=== PATIENT | female | born 1960 | race Caucasian/White ===

== ENCOUNTER → 2018-02-15 15:01 | Outpatient (CLI) | payer OTHER, SELFPAY ==
--- NOTE | 2018-02-15 15:04 | MM_ITS ---
MM Dig screening mamm BI w/CAD CAD Screening COMPARISON: Outside digital mammograms 11/25/2013 INDICATION: There is no personal or family history of breast cancer TECHNIQUE: Standard CC and MLO images were obtained. R2 CAD reviewed. FINDINGS: The breasts are composed primarily of fat with very minimal scattered fibro glandular densities in each breast. There is a mole marker right breast. There are couple of benign-appearing calcination is in each breast. There is no suspicious lesion in either breast and there are no suspicious microcalcifications. IMPRESSION: Fatty type breast parenchyma with no suspicious lesion seen BI-RADS Category: 2 Benign Finding(s) RECOMMENDED FOLLOW-UP: 1YR - 1 YEAR FOLLOW-UP (A letter has been sent to the patient regarding results of the study.)
== END ==
PROVIDERS: Family Provider Internal Medicine Pulmonary Disease; PCP Internal Medicine Pulmonary Disease; Visit Provider Internal Medicine Pulmonary Disease
DX: Z12.31 Encounter for screening mammogram for malignant neoplasm of breast (principal)
CPT/HCPCS: 77067

== ENCOUNTER → 2018-02-23 13:31 | Outpatient (CLI) | payer OTHER, SELFPAY ==
--- NOTE | 2018-02-23 13:36 | CT_ITS ---
EXAM: CT LUNG LOW DOSE WO CONTRAST COMPARISON: None HISTORY: Smoker. One pack per day for 33 years January 01 3 pack-year. Stopped smoking 8 years ago. No current symptoms TECHNIQUE: The exam was performed on a GE Light Speed [address] scanner using 3.0 mGy CTDI. A l. Ow dose helical CT CHEST was performed on a multi-detector scanner. All CT scans at this facility use one or more dose reduction techniques, viz.: automated exposure control; ma/kV adjustment per patient size (including targeted exams where dose is matched to indication; i.e. head) or iterative reconstruction technique. The LDCT was performed in a facility that meets the criteria for the screening program. Data regarding this exam was submitted to ACR which is an approved registry. The order for this exam indicates that it came as a result of a lung cancer screening counseling shard decision-making visit that included all the elements required of such a visit including smoking cessation. The radiologist interpreting this exam meets the CMS criteria for the LDCT lung cancer screening program. The exam is reported using the Lung-RADS classification scale and reported to the ACR registry. NOTE: This study was performed forspecific purposes of lung cancer screening and is not an alternative to diagnostic chest CT. RADIATION DOSE: CTDI vol(CT dose Index-volume) = 2.9mGy DLP (Dose Length Product) = 96.53 mGy-cm FINDINGS: No suspicious pulmonary mass or lung nodule. Indeterminate or Suspicious Lung Nodules(Category3-4B): None Indeterminate/Non-actionable Nodules(Category2): None Benign nodules(Category1).* Only Less than 4 mm calcified granuloma at posterior left midlung axial slice 36, sagittal 51. Small calcified hilar node associated. No suspicious lung nodule or mass. LUNG PARENCHYMA Emphysema: Minor centrilobular emphysematous changes No remarkable airway disease No significant fibrotic changes. OTHER ANATOMIC REGIONS Lymph Nodes: Upper normal precarinal lymph node measuring 19 mm x 11 mm.. Follow-up in one year adequate unless other adenopathy encountered. No clearly pathologic nodes t. Scattered small nodes are present in the mediastinum and michael Pleura: Unremarkable Cardiac: Unremarkable. Heart normal size OTHER FINDINGS: No other pertinent findings evident Uppermost abdomen with cholecystectomy noted IMPRESSION: No highly suspicious lung mass or findings 1. Lung RADS Category: 1 Benign granuloma. Not of concern 2.. Moderate size upper normal precarinal lymph node at 19 x 11 mm. . No significant nor clearly pathologic adenopathy overall RECOMMENDATIONS: 12 monthd LDCT follow-up
== END ==
PROVIDERS: Family Provider Internal Medicine Pulmonary Disease; PCP Internal Medicine Pulmonary Disease; Visit Provider Internal Medicine Pulmonary Disease
DX: Z12.2 Encounter for screening for malignant neoplasm of respiratory organs (principal); Z87.891 Personal history of nicotine dependence

== ENCOUNTER → 2018-07-18 20:33 | Outpatient (CLI) | payer BC, SELFPAY | PROVIDERS: Visit Provider Nurse Practitioner Family | DX: J02.9 Acute pharyngitis, unspecified (principal) ==

== ENCOUNTER → 2019-04-25 10:56 | Outpatient (CLI) | payer BC, SELFPAY ==
--- NOTE | 2019-04-25 11:04 | XR_ITS ---
PROCEDURE: XR HIP BI W PEL1V CLINICAL INDICATION: LT HIP PAIN COMPARISON: No exams were available for comparison FINDINGS: No fracture or dislocation. The hip has an unremarkable appearance. No significant degenerative change. There is asymmetric sclerosis the right symphysis pubis IMPRESSION: Negative right hip Sclerosis of the symphysis pubis on the right which may reflect osteitis pubis but is usually bilateral. Follow-up suggested to confirm stability. Dictated by: Eriberto Barajas MD 04/25/2019 12:56 Signed by: <Electronically signed by Eriberto Barajas MD in [place]> 04/25/2019 12:56
== END ==
PROVIDERS: PCP Emergency Medicine; Visit Provider Emergency Medicine
DX: M25.552 Pain in left hip (principal)
CPT/HCPCS: 73521

== ENCOUNTER → 2019-11-01 10:36 | Outpatient (CLI) | payer BC, SELFPAY ==
--- NOTE | 2019-11-01 10:40 | MM_ITS ---
PROCEDURE: MM DIG SCREENING MAMM BI W/CAD CLINICAL INDICATION: SCREENING There is no personal or family history of breast cancer. The patient is on estrogen. COMPARISON: Digital Screening Bilateral from 12/09/2011 Digital Screening Bilateral from 11/25/2013 [facility] MM Dig screening mamm BI w/CAD from 02/15/2018 TECHNIQUE: Standard CC and MLO images and 3D Tomosynthesis was obtained. R2 CAD reviewed. FINDINGS: Breasts are composed primarily of fat with minimal scattered fibroglandular densities throughout each breast. There are couple of benign-appearing calcifications in each breast. Jeremiah images were reviewed. There is no suspicious lesion in either breast and no suspicious microcalcifications. IMPRESSION: Fatty type breast parenchyma with no suspicious lesions seen BI-RAD Category: 2 Benign Finding(s) FOLLOW-UP: 1YR 1 Year Follow-up (A letter has been sent to the patient regarding results of the study.) Dictated by: Dr. Dakotah Whelan MD 11/05/2019 20:[address] Dakotah Whelan MD in [place] 11/05/2019 20:41
== END ==
PROVIDERS: PCP Nurse Practitioner Family; Visit Provider Nurse Practitioner Family
DX: Z12.31 Encounter for screening mammogram for malignant neoplasm of breast (principal)
CPT/HCPCS: 77063; 77067

== ENCOUNTER → 2020-09-22 09:55 | Outpatient (POV) | payer BC, SELFPAY | PROVIDERS: Visit Provider Dermatology | DX: Z00.00 Encounter for general adult medical examination without abnormal findings (principal) ==

== ENCOUNTER → 2020-11-03 08:25 | Outpatient (POV) | payer BC, SELFPAY | PROVIDERS: Visit Provider Dermatology | DX: Z00.00 Encounter for general adult medical examination without abnormal findings (principal) ==

== ENCOUNTER → 2021-04-20 09:59 | Outpatient (POV) | payer BC, SELFPAY | PROVIDERS: Visit Provider Dermatology | DX: Z00.00 Encounter for general adult medical examination without abnormal findings (principal) ==

== ENCOUNTER → 2021-07-20 08:06 | Outpatient (CLI) | payer BC, SELFPAY ==
[2021-07-20 09:24] LABS: Alanine Aminotransferase 50 U/L (12-78); Albumin Level 4.5 g/dl (3.5-5.0); Albumin/Globulin Ratio 1.3 (1.1-1.8); Alkaline Phosphatase 62 U/L (38-126); Anion Gap 17.5 mEq/L (5-15); Aspartate Amino Transferase 44 U/L (14-36); Bilirubin,Total 0.2 mg/dl (0.2-1.3); Blood Urea Nitrogen 11 mg/dl (7-17); Calcium 10.3 mg/dl (8.4-10.2); Carbon Dioxide 27 mmol/L (22.0-30.0); Chloride 101 mmol/L (98-107); Chol/HDL Ratio 3.1 (1-3.5); Cholesterol 185 mg/dl (140-200); Estimated Glomerular Filt Rate 126 ml/min (>60); GFR (African American) 153 ML/MIN (>60); Globulin 3.4 g/dL (1.3-3.2); Glucose 263 mg/dl (74-100); HDL Cholesterol 60 mg/dl (40-60); Magnesium 1.4 mg/dl (1.6-2.3); Potassium 5.5 mmoL/L (3.5-5.1); Sodium 140 mmol/L (136-145); Total Protein,Serum 7.9 g/dl (6.3-8.2); Triglycerides 174 mg/dl (30-150); VLDL Cholesterol 35 mg/dL (0-40)
[2021-07-20 09:27] LABS: Hemoglobin A1C 8.9 % (4.0-6.0)
[2021-07-20 09:34] LABS: Direct LDL Cholesterol 136.74 mg/dL (100-129)
== END ==
PROVIDERS: Visit Provider Family Medicine
DX: I10 Essential (primary) hypertension (principal); E78.5 Hyperlipidemia, unspecified; E11.9 Type 2 diabetes mellitus without complications; R25.2 Cramp and spasm; Z79.4 Long term (current) use of insulin
CPT/HCPCS: 36415; 80053; 80061; 83036; 83735

== ENCOUNTER → 2021-09-08 17:00 | Outpatient (CLI) | payer BC, SELFPAY | PROVIDERS: PCP Family Medicine; Visit Provider Nurse Practitioner | DX: Z20.822 Contact with and (suspected) exposure to COVID-19 (principal) | CPT/HCPCS: C9803; U0003; U0005 ==

== ENCOUNTER → 2021-11-17 08:10 | Outpatient (CLI) | payer BC, SELFPAY ==
--- NOTE | 2021-11-17 08:14 | MM_ITS ---
PROCEDURE INFORMATION: Exam: MG Bilateral Screening 3D Mammography Exam date and time: 11/17/2021 8:14 AM Age: 61 years old Clinical indication: Encounter for screening mammogram for malignant neoplasm of breast. No family history of breast cancer. TECHNIQUE: Imaging protocol: Bilateral Screening tomosynthesis and 2D mammography including computer-aided detection (CAD) when performed. COMPARISON: 1. MG MM DIG SCREENING MAMM BI W/CAD 11/01/2019 10:51 AM 2. MG [facility] MM Dig screening mamm BI w/CAD 02/15/2018 3:09 PM FINDINGS: MAMMOGRAPHY: Breast composition: The breasts are almost entirely fatty. Mass: No suspicious mass. Architectural distortion: None. Calcifications: No suspicious calcifications. Asymmetric density: No developing asymmetry. Skin thickening: None. Axillary adenopathy: None. IMPRESSION: No mammographic evidence of malignancy. Annual screening is recommended unless otherwise clinically indicated. ASSESSMENT: BI-RADS Category 1: Negative
--- NOTE | 2021-11-17 08:50 | XR_ITS ---
FINAL REPORT TECHNIQUE: Bone densitometry calculations of the lumbar spine and left hip were obtained. CLINICAL HISTORY: . post menopausal screening FINDINGS: Using L1-4, the bone mineral density of the spine is 1.079 g/cm2, corresponding to T-score of 0.3. Using the right hip, the bone mineral density of the femoral neck is 0.788 g/cm2, corresponding to a T-score of -0.5. IMPRESSION: Normal bone mineral density of the lumbar spine and hip. Reviewed, Interpreted and Dictated by Lexx Kelley III, MD Transcribed by Charmaine Bustamante Authenticated by Lexx Kelley III, MD on 11/17/2021 10:29:[address] [facility]
== END ==
PROVIDERS: PCP Family Medicine; Visit Provider Family Medicine
DX: Z12.31 Encounter for screening mammogram for malignant neoplasm of breast (principal); Z78.0 Asymptomatic menopausal state
CPT/HCPCS: 77063; 77067; 77080

== ENCOUNTER 2022-07-21 10:32 | Emergency (ER) | payer BC, SELFPAY ==
[2022-07-21 11:50] VITALS: BP 140/87; PULSE 94; RESP 19; TEMP 36.8; O2SAT 97; BMI 28.1
--- NOTE | 2022-07-21 12:22 | EXP.UTC ---
Discharge Plan Disposition Patient Disposition: Home, Self-Care Condition: Good Prescriptions Prescriptions: New methylprednisolone [Medrol (Pepe)] 4 mg tablets,dose pack See Rx Instructions .Route .COMPLEX 6 Days Qty: 21 0RF Rx Instructions: taper pack; amoxicillin-pot clavulanate 500-125 mg Tablet 1 tab PO Q12H Qty: 20 0RF benzonatate 100 mg capsule 100 mg PO TID PRN (Reason: cough) Qty: 30 0RF No Action liraglutide 0.6 mg/0.1 mL (18 mg/3 mL) pen injector 1.8 mg SQ Qty: 27 losartan 50 mg tablet 50 mg PO Rybelsus 3 mg tablet 3 mg PO metformin 1,000 mg tablet 1,000 mg PO (DME) Accu-Chek Guide test strips Strip See Rx Instructions .ROUTE .MEDSUPPLY Qty: 10 Rx Instructions: As directed (DME) pen needle, diabetic [BD Ultra-Fine Mini Pen Needle] 31 gauge x 3/16 needle See Rx Instructions .ROUTE .MEDSUPPLY Qty: 50 Rx Instructions: As directed Collagen Plus Vitamin C 125-740 mg capsule PO mecobalamin (vitamin B12) 1,000 mcg tablet,disintegrating 1,000 mcg SUBLINGUAL DAILY Rx Instructions: place tablet under tongue and allow to dissolve for at least30 secs before swallowing biotin 5,000 mcg tablet, sublingual 5,000 mcg SUBLINGUAL DAILY cholecalciferol (vitamin D3) 25 mcg (1,000 unit) tablet,chewable 25 mcg PO DAILY estradiol [Shyanne] 0.1 mg/24 hr patch semiweekly 1 patch TRANSDERMA .TWICEWEEKLY 90 Days Qty: 24 3RF glimepiride 4 tablet 4 unit PO DAILY aspirin 81 MG tablet,chewable 81 mg PO DAILY insulin detemir U-100 100 insulin pen 50 units PO DAILY Referrals Follow up/Referrals: Sumanth Romero MD [Primary Care Provider] - See instructions Activity Restrictions/Add. Instructions Additional Instructions/Restrictions: Start antibiotic today. Be sure to complete entire prescription even if feeling better Monitor temp. Tylenol every 4 hours as needed and / or ibuprofen every 6 hours as needed ( As long as your primary care physician has told you that it ok to take both. For fever/aches/pains ER if no less than 101 despite Tylenol or Motrin Humidifier/vaporizer or hot steamy shower *Tessalon Perles will not cause drowsiness but use at bedtime to help stop cough so that you may get some rest. *Start steroid today. Helps with inflammation therefore, cough and wheezing. Follow directions on the package. Reviewed side effects. Patient reports taking them before. Follow up IMMEDIATELY for new or worsening of symptoms OR no noticeable improvement over the next 48-72 hours. 911 immediately for any life threatening symptoms such as chest pain or difficulty breathing Clinical Impressions Clinical Impression: Bronchitis Sinusitis Qualifiers: Sinusitis location: unspecified location Chronicity: unspecified Qualified Code(s): J32.9 - Chronic sinusitis, unspecified Instructions Patient Instructions: Sinusitis, Acute Bronchitis, DI for Sinusitis Discharge ED Provider: Delisa Mendez [facility] General Stated complaint: Sore throat, chest congestion, cough Mode of Arrival: Ambulatory Source of Information: Patient Limitations: No Limitations Time Seen by Provider: 07/21/22 12:24 Description of Symptoms (Recalled from Triage Doc. by RN): PATIENT C/O CHEST CONGESTION, SORE THROAT, AND SINUS HEADACHE X 2 DAYS HEENT Symptoms (Recalled from RN notes): Yes Resp Symptoms (Recalled from RN notes): Yes Skin Symptoms (Recalled from RN notes): No MS Symptoms (Recalled from RN notes): No Functional Status (Recalled from RN notes): WNL History of Present Illness Provider Complaint: Patient states that she has been having sinus pain and pressure, drainage in the back of her throat, cough and congestion States that she thinks she is getting bronchitis States that she gets it about this time every year Related Data Home Medications Medicatio
[2022-07-21 12:34] VITALS: BP 140/87; PULSE 94; RESP 19; TEMP 36.8; O2SAT 97
== END 2022-07-21 12:39 | disposition home or self-care (01) ==
PROVIDERS: Emergency Provider Nurse Practitioner; PCP Family Medicine
DX: J40 Bronchitis, not specified as acute or chronic (principal); J32.9 Chronic sinusitis, unspecified
CPT/HCPCS: 99212; G0463

== ENCOUNTER → 2023-01-16 15:49 | Outpatient (CLI) | payer BC, SELFPAY ==
--- NOTE | 2023-01-16 15:54 | MM_ITS ---
PROCEDURE INFORMATION: Exam: MG Bilateral Screening 3D Mammography Exam date and time: 01/16/2023 4:07 PM Age: 62 years old Clinical indication: Screening mammogram TECHNIQUE: Imaging protocol: Bilateral Screening tomosynthesis and 2D mammography including computer-aided detection (CAD) when performed. COMPARISON: 1. MG MM DIG SCREENING MAMM BI W/CAD 11/17/2021 8:24 AM 2. MG MM DIG SCREENING MAMM BI W/CAD 11/01/2019 10:51 AM 3. MG [facility] MM Dig screening mamm BI w/CAD 02/15/2018 3:09 PM 4. MG Digital Screening Bilateral 11/25/2013 1:16 PM FINDINGS: MAMMOGRAPHY: Breast composition: The breasts are almost entirely fatty. Mass: None. Architectural distortion: No new or suspicious architectural distortion. Calcifications: No new or suspicious calcifications are present Asymmetric density: No new or suspicious asymmetric density is present Skin thickening: None. Axillary adenopathy: None. IMPRESSION: No mammographic evidence of malignancy. Recommend annual screening mammography unless otherwise clinically indicated. ASSESSMENT: BI-RADS category 1: Negative
== END ==
PROVIDERS: PCP Family Medicine; Visit Provider Family Medicine
DX: Z12.31 Encounter for screening mammogram for malignant neoplasm of breast (principal)
CPT/HCPCS: 77063; 77067

== ENCOUNTER 2023-07-17 20:09 | Observation (INO) | payer BC, SELFPAY ==
[2023-07-17 20:11] VITALS: BP 119/64; PULSE 123; RESP 20; TEMP 36.4; O2SAT 98; BMI 27.4
--- NOTE | 2023-07-17 20:28 | PC.NURSE ---
finger stick 279
[2023-07-17 20:33] LABS: POC Glucose,Bedside 279 (70-110)
[2023-07-17 20:50] LABS: Basophils % 0.5 % (0.1-2.0); Eosinophils # 0.1 K/mm3 (0.0-0.4); Eosinophils % 1.5 % (0.1-12.0); Hematocrit 42.4 % (37.0-47.0); Hemoglobin 14.5 g/dL (12.2-16.2); Lymphocytes # 1.5 K/mm3 (0.7-4.5); Lymphocytes % 24.3 % (10-50); Mean Corpuscular HGB Conc 34.1 g/dL (31.8-35.4); Mean Corpuscular Hemoglobin 33.1 pg (27.0-31.2); Mean Corpuscular Volume 97.1 fl (81-99); Mean Platelet Volume 7.8 fl (7.4-10.4); Monocytes # 0.2 K/mm3 (0.1-1.0); Monocytes % 3.7 % (1.7-9.3); Neutrophils # 4.2 K/mm3 (1.8-7.8); Platelet Count 368 K/mm3 (142-424); Red Blood Count 4.37 M/mm3 (4.20-5.40); Red Cell Distribution Width 13.7 % (11.5-17.5)
[2023-07-17 21:07] LABS: Chloride 99 mmol/L (98-107); Potassium 4.3 mmoL/L (3.5-5.1); Sodium 135 mmol/L (136-145)
[2023-07-17 21:10] LABS: Alanine Aminotransferase 50 U/L (12-78); Albumin Level 4.9 g/dl (3.5-5.0); Albumin/Globulin Ratio 1.1 (1.1-1.8); Alkaline Phosphatase 82 U/L (38-126); Anion Gap 19.3 mEq/L (5-15); Aspartate Amino Transferase 50 U/L (14-36); Bilirubin,Total 0.5 mg/dl (0.2-1.3); Blood Urea Nitrogen 16 mg/dl (7-17); Carbon Dioxide 21 mmol/L (22.0-30.0); Creatinine Clearance Estimated 68 mL/min (50-200); Estimated Glomerular Filt Rate 85 ml/min (>60); GFR (African American) 103 ML/MIN (>60); Globulin 4.3 g/dL (1.3-3.2); Total Protein,Serum 9.2 g/dl (6.3-8.2)
[2023-07-17 21:11] LABS: Calcium 9.4 mg/dl (8.4-10.2); Glucose 295 mg/dl (74-100)
--- NOTE | 2023-07-17 21:18 | HMH.EDGENADL ---
Discharge Plan Disposition Patient Disposition: Admitted Prescriptions Prescriptions: No Action losartan 50 mg tablet 50 mg PO Rybelsus 3 mg tablet 3 mg PO metformin 1,000 mg tablet 1,000 mg PO (DME) Accu-Chek Guide test strips Strip See Rx Instructions .ROUTE .MEDSUPPLY Qty: 10 Rx Instructions: As directed (DME) pen needle, diabetic [BD Ultra-Fine Mini Pen Needle] 31 gauge x 3/16 needle See Rx Instructions .ROUTE .MEDSUPPLY Qty: 50 Rx Instructions: As directed Collagen Plus Vitamin C 125-740 mg capsule PO mecobalamin (vitamin B12) 1,000 mcg tablet,disintegrating 1,000 mcg SUBLINGUAL DAILY Rx Instructions: place tablet under tongue and allow to dissolve for at least30 secs before swallowing biotin 5,000 mcg tablet, sublingual 5,000 mcg SUBLINGUAL DAILY cholecalciferol (vitamin D3) 25 mcg (1,000 unit) tablet,chewable 25 mcg PO DAILY meloxicam 7.5 mg tablet 7.5 mg PO DAILY Rybelsus 14 mg tablet 14 mg PO DAILY Patient Comments: TAKE 1 TABLET BY MOUTH ONCE DAILY rosuvastatin 20 mg tablet 20 mg PO DAILY magnesium oxide 400 mg (241.3 mg magnesium) tablet 400 mg PO BID Patient Comments: TAKE 1 TABLET BY MOUTH ONCE DAILY acetaminophen [Tylenol Extra Strength] 500 mg tablet 500 mg PO BID PRN estradiol [Shyanne] 0.1 mg/24 hr patch semiweekly 1 patch TRANSDERMA .TWICEWEEKLY 30 Days Qty: 8 11RF glimepiride 4 tablet 4 unit PO DAILY aspirin 81 MG tablet,chewable 81 mg PO DAILY insulin detemir U-100 100 insulin pen 50 units PO DAILY Referrals Follow up/Referrals: Sumanth Romero MD [Primary Care Provider] - See instructions Clinical Impressions Clinical Impression: DKA (diabetic ketoacidosis), Vomiting Discharge ED Provider: Stevenson Pillai General Adult HPI General Chief complaint: Abdominal Pain Stated complaint: HIGH BLOOD SUGAR 248 Time Seen by Provider: 07/17/23 21:00 Mode of Arrival: Ambulatory Source of Information: Patient Limitations: No Limitations Description of Symptoms (Recalled from ER Triage Doc. by RN): pt began having abd pain/ cramping with n/v/d today History of Present Illness HPI narrative: Patient is a 63-year-old female with past medical history of insulin-dependent diabetes who presents emergency department for evaluation of nausea, vomiting, diarrhea. Onset was acute earlier today. Nonbloody. Patient states that she has GERD at baseline with no acute changes in pain, no shortness of breath. Sugars have been running in the 200s. No other acute complaints at this time. Related Data Home Medications Medication Instructions Recorded Confirmed aspirin 81 mg chewable tablet 81 mg PO DAILY Heart disease 03/16/18 01/12/23 glimepiride 4 mg tablet 4 unit PO DAILY Diabetes 03/16/18 01/12/23 insulin detemir U-100 100 unit/mL 50 units PO DAILY Diabetes 03/16/18 01/12/23 (3 mL) subcutaneous pen ascorbic acid 125 mg-collagen, cap PO 06/30/21 01/12/23 hydrolyzed 740 mg capsule (Collagen Plus Vitamin C) biotin 5,000 mcg sublingual tablet 5,000 mcg sublingual DAILY 06/30/21 01/12/23 blood sugar diagnostic (Accu-Chek #10 ea 06/30/21 01/12/23 Guide test strips) cholecalciferol (vitamin D3) 25 25 mcg PO DAILY 06/30/21 01/12/23 mcg (1,000 unit) chewable tablet losartan 50 mg tablet 50 mg PO 06/30/21 01/12/23 mecobalamin (vitamin B12) 1,000 1,000 mcg sublingual DAILY 06/30/21 01/12/23 mcg disintegrating tablet,sublingual metformin 1,000 mg tablet 1,000 mg PO 06/30/21 01/12/23 pen needle, diabetic 31 gauge x #50 ea 06/30/21 01/12/23 3/16 (BD Ultra-Fine Mini Pen Needle) semaglutide 3 mg tablet (Rybelsus) 3 mg PO 06/30/21 01/12/23 acetaminophen 500 mg tablet 500 mg PO BID PRN 01/12/23 01/12/23 (Tylenol Extra Strength) magnesium oxide 400 mg (241.3 mg 400 mg PO BID 01/12/23 01/12/23 magnesium) tablet meloxicam 7.5
[2023-07-17 21:28] LABS: VBG Base Excess -6.7 mmol/L (-2.4-2.3); VBG HCO3 19.9 mmol/L (23-30); VBG Oxygen Saturation 76.9 % (50-70); VBG PH 7.28 mmol/L (7.31-7.41); VBG PO2 45.2 mmol/L (28-40); VBG Total CO2 21.3 mmol/L (23-27)
[2023-07-17 21:30] LABS: Lipase 94 U/L (23-300); Troponin I < 0.01 ng/ml (0.00-0.034)
[2023-07-17 21:31] LABS: Lactic Acid 2.6 mmol/L (0.7-2.1)
--- NOTE | 2023-07-17 21:35 | ECG_ITS ---
APPROVED REPORT Exam: Resting ECG HR:120 bpm ECG Measurements Heart Rate 120 AXES [place] 128 P 62 QRSd 82 QRS 3 QT 334 T 18 QTc 405 Conclusion SINUS TACHYCARDIA INDETERMINATE AXIS LOW QRS VOLTAGE IN PRECORDIAL LEADS [QRS DEFLECTION < 1.0 mV IN CHEST LEADS] ABNORMAL RHYTHM ECG UNCONFIRMED REPORT Electronically signed by : Hao Mckeon MD 07/18/2023 20:10:56
[2023-07-17 21:37] LABS: Microscopic, Urine URINE MICROSCOPIC (MICROSCOPIC)
[2023-07-17 21:52] LABS: Coronavirus 19, PCR Not Detected (NotDetected); Influenza A, PCR Not Detected (NotDetected); Influenza B, PCR Not Detected (NotDetected)
[2023-07-17 21:57] LABS: Appearance,Urine CLEAR (Clear); Blood, Urine TRACE-I (Negative); Color,Urine YELLOW (Yellow); Glucose,Urine (UA) 2+ (Negative); Ketones,Urine Negative (Negative); Leukocyte Esterase,Urine Negative (Negative); Nitrate,Urine Negative (Negative); PH,Urine 5.5 (5.0-8.5); Protein,Urine 3+ (Negative); Specific Gravity, Urine >= 1.030 (1.005-1.030); Urobilinogen,Urine 0.2 EU/dl (0.2)
[2023-07-17 22:12] LABS: Bilirubin,Urine 1+ (Negative)
[2023-07-17 22:14] LABS: RBC,Urine Occasional #/hpf (0-3); Squamous Epithelial Cell,Urine Occasional #/hpf (0-5)
--- NOTE | 2023-07-17 23:02 | PC.NURSE ---
Dr. Mike palacio for ED doctor
[2023-07-17 23:05] VITALS: BMI 21.4
--- NOTE | 2023-07-17 23:06 | PC.NURSE ---
Per Dr Pillai, insulin gtt to be started ! .01 units/kg/hr. Spoke with renée [facility] pharmacy to change order.
[2023-07-17 23:19] LABS: Acetone, Serum (Rapid) None Detected (None Detect)
--- NOTE | 2023-07-17 23:30 | PC.NURSE ---
I spoke to Vu, data warehouse administrator, requesting a bed for admission. Dr. Mckeon accepted the pt to be admitted.
--- NOTE | 2023-07-17 23:34 | HMH.PROCNOTE ---
[facility] Procedure Note Date: 07/17/23 Time: 23:34 Procedure Note:: Procedure: Ultrasound-guided IV Indication: Dehydration A ultrasound-guided long 18-gauge IV was placed in the left AC under direct visualization by myself.
[2023-07-17 23:38] LABS: POC Glucose,Bedside 342 (70-110)
--- NOTE | 2023-07-18 00:04 | PC.NURSE ---
called report to Mandie MUNSON on 2nd floor and answered all questions
[2023-07-18 00:10] VITALS: BP 128/79; PULSE 112; RESP 20; TEMP 36.7; O2SAT 96
[2023-07-18 00:12] VITALS: BP 129/61; PULSE 118; RESP 18; TEMP 37.2; O2SAT 97
--- NOTE | 2023-07-18 00:13 | PC.NURSE ---
Patient arrived to floor via wheelchair at 00:12;
[2023-07-18 00:18] LABS: Reflex Lactic Add Lactic Reflex
[2023-07-18 00:44] LABS: Lactic Acid Follow Up (RFLX 1) 2.7 mmol/L (0.7-2.1)
[2023-07-18 01:31] LABS: POC Glucose,Bedside 271 (70-110)
[2023-07-18 02:33] LABS: Reflex Lactic (2 hrs) Add Lactic Reflex
[2023-07-18 03:17] LABS: POC Glucose,Bedside 260 (70-110)
[2023-07-18 04:00] VITALS: BP 134/72; PULSE 106; RESP 20; TEMP 37.1; O2SAT 96; BMI 22.5
[2023-07-18 05:34] LABS: POC Glucose,Bedside 241 (70-110)
[2023-07-18 05:51] LABS: Alanine Aminotransferase 39 U/L (12-78); Albumin/Globulin Ratio 1.2 (1.1-1.8); Alkaline Phosphatase 55 U/L (38-126); Anion Gap 16.1 mEq/L (5-15); Aspartate Amino Transferase 39 U/L (14-36); Bilirubin,Total 0.5 mg/dl (0.2-1.3); Blood Urea Nitrogen 12 mg/dl (7-17); Calcium 8.8 mg/dl (8.4-10.2); Carbon Dioxide 25 mmol/L (22.0-30.0); Chloride 99 mmol/L (98-107); Creatinine Clearance Estimated 68 mL/min (50-200); Estimated Glomerular Filt Rate 102 ml/min (>60); GFR (African American) 123 ML/MIN (>60); Globulin 3.4 g/dL (1.3-3.2); Glucose 257 mg/dl (74-100); Potassium 4.1 mmoL/L (3.5-5.1); Sodium 136 mmol/L (136-145); Total Protein,Serum 7.4 g/dl (6.3-8.2)
--- NOTE | 2023-07-18 06:01 | PC.NURSE ---
fsbs q2 hr, 271, 260, 241. pt denies any c/o.
[2023-07-18 06:09] LABS: Basophils % 0.2 % (0.1-2.0); Eosinophils # 0.3 K/mm3 (0.0-0.4); Hematocrit 35.5 % (37.0-47.0); Lymphocytes # 1.9 K/mm3 (0.7-4.5); Lymphocytes % 22.5 % (10-50); Mean Corpuscular HGB Conc 33.1 g/dL (31.8-35.4); Mean Corpuscular Hemoglobin 32.5 pg (27.0-31.2); Mean Corpuscular Volume 98.3 fl (81-99); Mean Platelet Volume 7.7 fl (7.4-10.4); Monocytes # 0.6 K/mm3 (0.1-1.0); Monocytes % 6.6 % (1.7-9.3); Neutrophils # 5.7 K/mm3 (1.8-7.8); Neutrophils % 67.7 % (37.0-80.0); Platelet Count 241 K/mm3 (142-424); Red Blood Count 3.62 M/mm3 (4.20-5.40); Red Cell Distribution Width 13.9 % (11.5-17.5); White Blood Count 8.4 K/mm3 (4.8-10.8)
[2023-07-18 06:16] LABS: Hemoglobin 11.8 g/dL (12.2-16.2)
[2023-07-18 07:37] VITALS: BP 120/67; PULSE 102; RESP 17; TEMP 37.2; O2SAT 96
--- NOTE | 2023-07-18 08:06 | EXP.HP ---
History of Present Illness *Admission Date: 07/18/23 *Reason for visit:: Nausea, vomiting, diarrhea *History of present illness: Ms. Martinez is a 63-year-old female with a history of type 2 diabetes mellitus, hyperlipidemia, history of seizures disorder as a child who is followed by neurology, and hypomagnesia who presented to [facility] emergency room with nausea, vomiting, diarrhea, and abdominal pain. She states she was at work yesterday and felt a little funny and as the day progressed she felt worse. She was unable to eat her lunch. She was unable to fix dinner when she arrived home and then began to vomit and have diarrhea. She noted no blood from any source. She also had lower abdominal discomfort. This persisted and she did not feel well. Blood sugars normally run high. She had her son bring her to the emergency room for evaluation. She denied any upper respiratory symptoms and dysuria. Admission laboratory data shows a normal white blood cell count. Hemoglobin and hematocrit were normal. AST was slightly elevated at 50. Lactate was elevated at 2.6. Acetone was negative. Urine appeared negative for UTI. COVID and flu were negative as well. In the emergency room she was given IV fluids and insulin. She was also given IV Zofran and promethazine. She was noted to have persistent tachycardia. She was thus admitted for further evaluation and treatment. This a.m. patient is feeling better. Last vomiting and diarrhea were in the emergency room. She was able to walk to the bathroom since admission without difficulty. She is voiding QS. Laboratory data shows a normal white blood cell count, electrolytes and kidney function. AST has decreased but is still slightly elevated. She would like something to eat but will start her on clear liquids. Blood sugars have run high and she has not been on sliding scale. [facility] Disclaimer: The information contained in this section may have been updated after the patient was seen, as this information can be updated by other users. Medical History Diabetes mellitus, type 2 Hyperlipidemia Migraine Surgical History History of cholecystectomy History of hysterectomy History of tonsillectomy Family History (Updated 07/18/23 @ 08:11 by Mandi Erickson APRN) Diabetes Mother Father Social History Smoking Status: Never smoker alcohol intake: never substance use type: denies use current occupational status: employed Travel in the last 8 weeks: Inside the [place] household members: family Review of Systems Constitutional Constitutional: Denies body ache(s), Reports chills, Denies fever(s), Denies headache(s) and Reports weakness Eyes Eyes: Denies change in vision ENT Ears, Nose, Mouth, and Throat: Denies otalgia, Denies headache(s), Denies nasal discharge, Reports sore throat (Thinks this is from vomiting) and Denies vertigo *Cardiovascular Cardiovascular: Denies chest pain, Denies dyspnea and Denies leg edema *Respiratory Respiratory: Denies chest congestion, Denies cough and Denies dyspnea *Gastrointestinal Gastrointestinal: Reports abdominal pain, Reports cramping, Denies dyspepsia, Denies heartburn, Denies hematemesis, Reports loose stools, Reports nausea and Reports vomiting *Genitourinary Genitourinary: Denies difficulty voiding *Musculoskeletal Musculoskeletal: Reports arthralgias (Ongoing bilateral hip pain) and Denies myalgias *Neurologic Neurologic: Denies abnormal speech, Denies headache(s), Denies seizure-like activity, Denies vertigo and Reports weakness Meds Home Medications and Allergies Home Medications Medication Instructions Recorded Confirmed Type aspirin 81 mg chewable tablet 81 mg PO DAILY Heart disease 03/16/18 07/18/23 History glimepiride 4 mg tablet 4 unit PO DAILY Di
--- NOTE | 2023-07-18 08:39 | HMH.PHAINT1 ---
Pharmacy Intervention Comments: Med reconciliation completed using external fill history and patient interview. Ms Juan states that her MD told her to increase her levemir dose from 60 to 70 units
[2023-07-18 11:12] LABS: POC Glucose,Bedside 292 (70-110)
[2023-07-18 15:55] VITALS: BP 121/70; PULSE 88; RESP 17; TEMP 36.6; O2SAT 97
[2023-07-18 16:17] LABS: POC Glucose,Bedside 240 (70-110)
--- NOTE | 2023-07-18 17:03 | PC.NURSE ---
A&OX4. TOLERATING RA WELL. FSBS IN THE 200S THIS SHIFT, COVERED WITH SLIDING SCALE PER MAR. PT TOLERATING FULL LIQUID DIET WELL. UP INDEPENDENTLY IN ROOM. FAMILY HAS BEEN IN AND OUT. PT STATES SHE IS FEELING MORE HERSELF THIS EVENING. NO NEEDS OR C/O NOTED AT THIS TIME, VSS.
[2023-07-18 20:00] VITALS: BP 131/71; PULSE 86; RESP 17; TEMP 36.7; O2SAT 96
[2023-07-18 20:42] LABS: POC Glucose,Bedside 268 (70-110)
[2023-07-19 04:00] VITALS: BP 109/71; PULSE 94; RESP 16; TEMP 36.7; O2SAT 96; BMI 23.0
--- NOTE | 2023-07-19 05:18 | PC.NURSE ---
Patient has been able to rest this evening. Patient showed adequate gate and was steady on her feet. Patient has independent ambulated to and from the bathroom multiple times tonight. Patient has had no nausea, pain, or vomiting. No issues we stated by patient.
[2023-07-19 05:46] LABS: POC Glucose,Bedside 295 (70-110)
[2023-07-19 08:00] VITALS: BP 137/72; PULSE 94; RESP 18; TEMP 36.7; O2SAT 96
--- NOTE | 2023-07-19 08:02 | P.PN_ITS ---
Subjective *Date: 07/19/23 *Time: 08:46 Interval history: Patient is feeling better today. She slept well last night and denies any pain. Has some nausea but no vomiting. Was able to eat. Glucose has been in the upper 200's. Medical Exam Vital signs and Labs for Last 24 Hours: Vital Signs Temp Pulse Resp BP Pulse Ox O2 Del Method 07/19/23 04:00 98.0 F 94 H 16 109/71 L 96 Room Air 07/19/23 06:56 Room Air 07/19/23 05:00 Room Air 07/19/23 03:00 Room Air 07/19/23 01:00 Room Air 07/18/23 23:00 Room Air 07/18/23 21:00 Room Air 07/18/23 20:00 Room Air 07/18/23 20:00 98.0 F 86 17 131/71 96 Room Air 07/18/23 18:45 Room Air 07/18/23 16:56 Room Air 07/18/23 15:55 97.9 F 88 17 121/70 97 Room Air 07/18/23 15:00 Room Air 07/18/23 12:31 Room Air 07/18/23 10:46 Room Air 07/18/23 08:52 Room Air Intake and Output 07/18/23 07/19/23 07/19/23 19:59 03:59 11:59 Intake Total 600 / 750 150 / 750 Output Total 0 / 0 Balance 600 / 750 150 / 750 Intake: Intake, Oral Amount 600 / 750 150 / 750 Output: Output, Urine Amount 0 / 0 Other: Number of Unmeasured Voids 1 4 Weight 164 lb 4.8 oz Patient Weight 07/19/23 11:59 Weight 164 lb 4.8 oz Laboratory Results - last 24 hr 07/18/23 11:04: POC Glucose 292 H 07/18/23 16:04: POC Glucose 240 H 07/18/23 20:34: POC Glucose 268 H 07/19/23 05:38: POC Glucose 295 H I & O for Labs for Last 24 Hours: Intake & Output 07/16/23 07/17/23 07/18/23 07/19/23 11:59 11:59 11:59 11:59 Intake Total 1062 / 1062 750 / 750 Output Total 0 / 0 0 / 0 Balance 1062 / 1062 750 / 750 Weight 160 lb 14.999 oz 164 lb 4.8 oz Constitutional: Present no acute distress Respiratory: Present CTA bilaterally Cardiac: Present Reg Rate and Rhythm GI: Present soft; Absent distention, tenderness or guarding Extremities: Absent edema Skin: Present intact Neuro: Present alert, awake and oriented x 3 Assessment and Plan *Assessment and plan (1) Gastroenteritis: Status: Acute Category: Medical Code(s): K52.9 - Noninfective gastroenteritis and colitis, unspecified (2) Diabetes mellitus: Status: Acute Qualifiers: Diabetes mellitus complication status: without complication Diabetes mellitus group home insulin use: with terminal gauger use Diabetes mellitus type: type 2 Qualified Code(s): E11.9 - Type 2 diabetes mellitus without complications; Z79.4 - emt intermediate (current) use of insulin Category: Medical Code(s): E11.9 - Type 2 diabetes mellitus without complications (3) Hyperglycemia due to diabetes mellitus: Status: Acute Category: Medical Code(s): E11.65 - Type 2 diabetes mellitus with hyperglycemia Plan Patient is improving and would like to go home today. She is tolerating her diet. Glucose was in the in upper 200's. Will discuss with Dr. Myers. Dr. Myers entry - Saw patient, agree with above note. OK for discharge home today.
--- NOTE | 2023-07-20 16:43 | CARE MANAGER ---
Contacted patient related to hospital discharge. She states her sugars are much better. She is aware of medication changes and follow up appointment and denies any questions or concerns. JEIMY Fu
--- NOTE | 2023-07-24 13:24 | EXP.DC.SUM ---
General Admission date:: 07/18/23 Discharge date: 07/19/23 HPI HPI HPI: Ms. 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 She states she was at work yesterday and felt a little funny and as the day progressed she felt worse. She was unable to eat her lunch. She was unable to fix dinner when she arrived home and then began to vomit and have diarrhea. She noted no blood from any source. She also had lower abdominal discomfort. This persisted and she did not feel well. Blood sugars normally run high. She had her son bring her to the emergency room for evaluation. She denied any upper respiratory symptoms and dysuria. Admission laboratory data shows a normal white blood cell count. Hemoglobin and hematocrit were normal. AST was slightly elevated at 50. Lactate was elevated at 2.6. Acetone was negative. Urine appeared negative for UTI. COVID and flu were negative as well. In the emergency room she was given IV fluids and insulin. She was also given IV Zofran and promethazine. She was noted to have persistent tachycardia. She was thus admitted for further evaluation and treatment. This a.m. patient is feeling better. Last vomiting and diarrhea were in the emergency room. She was able to walk to the bathroom since admission without difficulty. She is voiding QS. Laboratory data shows a normal white blood cell count, electrolytes and kidney function. AST has decreased but is still slightly elevated. She would like something to eat but will start her on clear liquids. Blood sugars have run high and she has not been on sliding scale. Hospital Course Hospital Course Hospital Course: The patient was continued on IV fluids as well as Zofran/Phenergan for nausea. Clear liquids were added as was sliding scale insulin. By 07/18/2023 she was feeling better. She did not have DKA. By 07/19/23, she was feeling much better. She had had some nausea but no vomiting. She had slept well and was able to eat. Her glucose was running in the upper 200s. It was felt she was stable to be discharged home. Exam Data for Last 24 hours Vital signs and Labs for Last 24 Hours: Temp Pulse Resp BP Pulse Ox O2 Del Method 98.1 F 94 H 18 137/72 96 Room Air 07/19/23 08:00 07/19/23 08:00 07/19/23 08:00 07/19/23 08:00 07/19/23 08:00 07/19/23 08:00 Narrative: Constitutional Constitutional: no acute distress Comments: Awake and conversant. Appears comfortable lying in bed. *Routine HEENT Exam Head: Present normocephalic and atraumatic Eye: Present PERRL; Absent conjunctival icterus, scleral injection or conjunctivae pink ENT: Present mucous membranes moist, oropharynx clear and dentition normal *Routine Neck Exam Neck: Absent carotid bruit, lymphadenopathy or thyromegaly *Routine Respiratory Exam Respiratory: Present CTA bilaterally (Anteriorly and posteriorly) *Routine Cardiovascular Exam Cardiovascular: Present RRR (80/min) *Routine Abdominal Exam Abdominal: Present soft and normoactive bowel sounds; Absent tenderness, distended or guarding *Routine Rectal Exam Rectal:: deferred *Routine Genitalia Exam Genitalia:: deferred *Routine Extremities Exam Extremities: Present full ROM and pulses intact; Absent edema, calf tenderness or tenderness *Routine Neurological Exam Neurological: Present alert and oriented X3 Results Data Completed and Pending Labs on day of discharge: Preliminary micro results at discharge 07/17/23 23:45 Blood Culture - Preliminary Blood 07/17/23 23:35 Blood Culture - Preliminary Blood DS: Diagnosis Discharge Diagnosis (1) Gastroenteritis: Status: Acute Code(s): K52.9 - Noninfective gastroenteritis and colitis, unspecified (2) Diabetes
== END 2023-07-19 09:35 | disposition home or self-care (01) ==
LOC: ER 23:07 → 2ND 23:56
PROVIDERS: Admitting Provider Internal Medicine Adolescent Medicine; Emergency Provider Emergency Medicine; PCP Family Medicine; Visit Provider Family Medicine
DX: K52.9 Noninfective gastroenteritis and colitis, unspecified (principal); Z79.4 Long term (current) use of insulin; E11.65 Type 2 diabetes mellitus with hyperglycemia; Z79.899 Other long term (current) drug therapy
CPT/HCPCS: 36415; 80053; 81001; 82009; 82803; 82962; 83605; 83690; 84484; 85025; 87040; 87636; 93005; 99285; G0378; J2405

== ENCOUNTER 2023-10-17 10:08 | Outpatient (CLI) | payer BC, SELFPAY ==
--- NOTE | 2023-10-17 10:20 | XR_ITS ---
FINAL REPORT CLINICAL HISTORY: SEVERE PAIN IN LEFT HIP COMPARISON: 04/25/2019 FINDINGS: Left hip Three views were obtained. There is no acute fracture or dislocation. The joint spaces appear normal. No soft tissue abnormality is identified. IMPRESSION: No acute process. Reviewed, Interpreted and Dictated by Lexx Kelley III, MD Transcribed by Mandi Kumari Authenticated and [facility]
== END 2023-10-17 23:59 ==
LOC: RAD 10:09
PROVIDERS: PCP Family Medicine; Visit Provider Family Medicine
DX: M25.552 Pain in left hip (principal)
CPT/HCPCS: 73502

== ENCOUNTER 2024-10-03 11:40 | Outpatient (CLI) | payer BC, SELFPAY ==
--- NOTE | 2024-10-03 11:46 | XR_ITS ---
FINAL REPORT CLINICAL HISTORY: Right hip pain COMPARISON: 04/25/2019 FINDINGS: RIGHT HIP Two views of the right hip and an AP view of the pelvis demonstrate no acute fracture or dislocation. The joint spaces appear normal. The visualized bony structures are well aligned. No soft tissue abnormality is seen. IMPRESSION: No acute bony abnormality. Reviewed, Interpreted and Dictated by Randell Benites MD Transcribed by Najma Castro Authenticated and [facility]
== END 2024-10-03 23:59 | disposition home or self-care (01) ==
LOC: RAD 11:43
PROVIDERS: PCP Family Medicine; Visit Provider Physician Assistant
DX: M25.551 Pain in right hip (principal)
CPT/HCPCS: 73502

== ENCOUNTER 2024-10-18 09:51 | Outpatient (CLI) | payer BC, SELFPAY ==
[2024-10-18 09:56] LABS: Coronavirus 19, PCR Not Detected (NotDetected); Influenza A, PCR Not Detected (NotDetected); Influenza B, PCR Not Detected (NotDetected)
== END 2024-10-18 23:59 | disposition home or self-care (01) ==
LOC: LAB 09:52
PROVIDERS: PCP Family Medicine; Visit Provider Physician Assistant
DX: J06.9 Acute upper respiratory infection, unspecified (principal)
CPT/HCPCS: 87636

== ENCOUNTER 2024-11-06 07:55 | Outpatient (CLI) | payer BC, SELFPAY ==
--- NOTE | 2024-11-06 07:57 | MM_ITS ---
PROCEDURE INFORMATION: Exam: MG Bilateral Screening 3D Mammography Exam date and time: 11/06/2024 8:04 AM Age: 64 years old Clinical indication: Screening examination TECHNIQUE: Imaging protocol: Bilateral Screening tomosynthesis and 2D mammography including computer-aided detection (CAD) when performed. COMPARISON: 1. MG MM DIG SCREENING MAMM BI W/CAD 01/16/2023 4:07 PM 2. MG MM DIG SCREENING MAMM BI W/CAD 11/17/2021 8:24 AM FINDINGS: MAMMOGRAPHY: Breast composition: The breasts are almost entirely fatty. Mass: None. Architectural distortion: None. Calcifications: No suspicious calcifications. Asymmetric density: None. Skin thickening: None. Axillary adenopathy: None. IMPRESSION: No mammographic evidence of malignancy. Annual screening is recommended unless otherwise clinically indicated. ASSESSMENT: BI-RADS Category 1: Negative.
== END 2024-11-06 23:59 | disposition home or self-care (01) ==
LOC: RAD 07:56
PROVIDERS: PCP Family Medicine; Visit Provider Family Medicine
DX: Z12.31 Encounter for screening mammogram for malignant neoplasm of breast (principal)
CPT/HCPCS: 77063; 77067